=== PATIENT | male | born 1990 | race Caucasian/White ===

== ENCOUNTER 2021-08-02 17:00 | Emergency (ER) | payer OTHER ==
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
[2021-08-02 19:33] LABS: SARS-COV-2 RT PCR NEGATIVE (NEGATIVE)
--- NOTE | 2021-08-02 20:42 | ER ---
Nurse's Notes [facility] Name: Eliecer Conley Age: 30 yrs Sex: Male : 1990 Arrival Date: 08/02/2021 Time: 17:01 Bed External Waiting Private MD: Diagnosis: Viral infection, unspecified Presentation: 08/02 17:28 Chief complaint: Patient states: COVID exposure - headache, congestion, fatigue, body ld1 aches. Coronavirus screen: At this time, the client does not indicate any symptoms associated with coronavirus-19. Ebola Screen: No symptoms or risks identified at this time. Initial Sepsis Screen: Does the patient meet any 2 criteria? No. Patient's initial sepsis screen is negative. Does the patient have a suspected source of infection? No. Patient's initial sepsis screen is negative. Risk Assessment: Do you want to hurt yourself or someone else? Patient reports no desire to harm self or others. Onset of symptoms was August 02, 2021 at 17:30. 17:28 Method Of Arrival: Ambulatory ld1 17:28 Acuity: LINDA 3 ld1 Triage Assessment: 17:30 General: Appears in no apparent distress. comfortable, Behavior is calm, cooperative, ld1 appropriate for age. Pain: Denies pain. Neuro: Level of Consciousness is awake, alert, obeys commands, Oriented to person, place, time, situation. Respiratory: Airway is patent Respiratory effort is even, unlabored, Respiratory pattern is regular, symmetrical. Historical: - Allergies: 17:30 No Known Allergies; ld1 - Home Meds: 17:30 None [Active]; ld1 - PMHx: 17:30 None; ld1 - PSHx: 17:30 None; ld1 - Immunization history:: Adult Immunizations up to date, Client reports having NOT received the Covid vaccine. - Social history:: Smoking status: Patient denies any tobacco usage or history of. Patient/guardian denies using alcohol. Screenin:36 Abuse screen: Denies threats or abuse. Denies injuries from another. Nutritional ld1 screening: No deficits noted. Tuberculosis screening: No symptoms or risk factors identified. Fall Risk None identified. Assessment: 19:36 Reassessment: See triage assessment. ld1 Vital Signs: 17:28 BP 127 / 97; Pulse 93; Resp 18; Temp 98.5(O); Pulse Ox 100% on R/A; Weight 108.86 kg; ld1 Height 5 ft. 11 in. (180.34 cm); Pain 0/10; 17:28 Body Mass Index 33.47 (108.86 kg, 180.34 cm) ld1 ED Course: 17:01 Patient arrived in ED. ds1 17:30 Triage completed. ld1 17:30 Arm band placed on right wrist. ld1 19:35 Ron Velasquez NP is PHCP. pm1 19:35 Doron Barragan MD is Attending Physician. pm1 19:36 Patient has correct armband on for positive identification. Placed in gown. Bed in low ld1 position. Call light in reach. Side rails up X2. Door closed. 19:36 No provider procedures requiring assistance completed. Patient did not have IV access ld1 during this emergency room visit. Administered Medications: No medications were administered Outcome: 20:42 Discharge ordered by MD. pm1 21:05 Discharged to home ambulatory. ld1 21:05 Condition: stable 21:05 Discharge instructions given to patient, Instructed on discharge instructions, follow up and referral plans. Demonstrated understanding of instructions, follow-up care. 21:05 Patient left the ED. ld1 Signatures: Sammie Mancilla ds1 Ron Velasquez NP CULINARY SPECIALIST pm1 Chaya Martinez, ROBERT RN ld1
--- NOTE | 2021-08-02 20:42 | EDPHYS ---
Physician Documentation [facility] Name: Eliecer Conley Age: 30 yrs Sex: Male : 1990 Arrival Date: 08/02/2021 Time: 17:01 Bed External Waiting Private MD: ED Physician Doron Barragan HPI: 08/02 19:42 This 30 yrs old Male presents to ER via Ambulatory with complaints of Covid Symptoms. pm1 19:42 Onset: The symptoms/episode began/occurred today. Severity of symptoms: in the pm1 emergency department the symptoms are unchanged. Modifying factors: The symptoms are alleviated by nothing, the symptoms are aggravated by nothing. Associated signs and symptoms: Pertinent positives: earache, sore throat, headache, Pertinent negatives: chest pain, diarrhea, fever, vomiting, cough, sob. The patient has not recently seen a physician. Multiple co-workers with covid . Historical: - Allergies: 17:30 No Known Allergies; ld1 - Home Meds: 17:30 None [Active]; ld1 - PMHx: 17:30 None; ld1 - PSHx: 17:30 None; ld1 - Immunization history:: Adult Immunizations up to date, Client reports having NOT received the Covid vaccine. - Social history:: Smoking status: Patient denies any tobacco usage or history of. Patient/guardian denies using alcohol. ROS: 19:42 Constitutional: Negative for fever, chills, and weight loss. pm1 19:42 Neck: Negative for injury, pain, and swelling, Cardiovascular: Negative for chest pain, palpitations, and edema, Respiratory: Negative for shortness of breath, cough, wheezing, and pleuritic chest pain, Abdomen/GI: Negative for abdominal pain, nausea, vomiting, diarrhea, and constipation, Back: Negative for injury and pain, MS/Extremity: Negative for injury and deformity, Skin: Negative for injury, rash, and discoloration. 19:42 ENT: Positive for ear pain, sore throat. 19:42 Neuro: Positive for headache, Negative for numbness, weakness. 19:42 All other systems are negative. Exam: 19:42 Constitutional: This is a well developed, well nourished patient who is awake, alert, pm1 and in no acute distress. 19:42 Head/Face: Normocephalic, atraumatic. 19:42 Back: No spinal tenderness. No costovertebral tenderness. Full range of motion. Skin: Warm, dry with normal turgor. Normal color with no rashes, no lesions, and no evidence of cellulitis. MS/ Extremity: Pulses equal, no cyanosis. Neurovascular intact. Full, normal range of motion. 19:42 ENT: External ear(s): are unremarkable, Ear canal(s): are normal, TM's: no acute changes, Mouth: no acute changes, Lips: normal, moist, Oral mucosa: normal, pink and intact, moist, Posterior pharynx: Tonsils: bilaterally enlarged, with erythema, peritonsillar mass, is not appreciated. 19:42 Cardiovascular: Exam negative for acute changes, Rate: normal, Rhythm: regular, Pulses: no pulse deficits are appreciated. 19:42 Respiratory: Exam negative for acute changes, respiratory distress, shortness of breath, Breath sounds: are clear throughout. 19:42 Neuro: Exam negative for acute changes, Orientation: is normal, Mentation: is normal, Motor: is normal, moves all fours, Gait: is steady, at a normal pace, without difficulty. Vital Signs: 17:28 BP 127 / 97; Pulse 93; Resp 18; Temp 98.5(O); Pulse Ox 100% on R/A; Weight 108.86 kg; ld1 Height 5 ft. 11 in. (180.34 cm); Pain 0/10; 17:28 Body Mass Index 33.47 (108.86 kg, 180.34 cm) ld1 MDM: 19:40 Data reviewed: vital signs. Data interpreted: Pulse oximetry: on room air is 100 %. pm1 Interpretation: normal. 19:42 Patient medically screened. pm1 20:41 Counseling: I had a detailed discussion with the patient and/or guardian regarding: the pm1 historical points, exam findings, and any diagnostic results supporting the discharge/admit diagnosis, lab results, the need for outpatient follow up, to return to the emergency department if symptoms worsen or persist or if there are any questions or concerns that arise at home. 08/02 17:32 Order name: COVID-19/FLU A+B (Document "Date of Onset" if Symptomatic); Complete Time: ld1 19:35 08/02 19:40 Order name: Strep pm1 08/02 19:41 Order name: Group A Streptococcus Rapid Sc; Complete Time: 20:41 EDMS 08/02 20:04 Order name: Throat Culture EDMS Administered Medications: No medications were administered Disposition: 08/03 02:01 Co-signature as Attending Physician, Doron Barragan MD. [email or web address] Disposition Summary: 08/02/21 20:42 Discharge Ordered Location: Home pm1 Problem: new pm1 Symptoms: have improved pm1 Condition: Stable pm1 Diagnosis - Viral infection, unspecified pm1 Followup: pm1 - With: Emergency Department - When: As needed - Reason: Worsening of condition Followup: pm1 - With: Private Physician - When: 2 - 3 days - Reason: Recheck today's complaints, Continuance of care, Re-evaluation by your physician Discharge Instructions: - Discharge Summary Sheet pm1 - Viral Illness, Adult pm1 Forms: - Medication Reconciliation Form pm1 - Thank You Letter pm1 - Antibiotic Education pm1 - Prescription Opioid Use pm1 Prescriptions: - Guaifenesin AC 10-100 mg/5 mL Oral Liquid - take 10 milliliters by ORAL route every 4 hours As needed; 240 milliliter; pm1 Refills: 0, Product Selection Permitted Signatures: Dispatcher [employer] EDMS Doron Barragan MD MD pkl Ron Velasquez, [employer] pm1 Chaya Martinez, RN RN ld1
[2021-08-02 21:10] VITALS: BP 127/97; TEMP 98.5; O2SAT 100
== END 2021-08-02 21:05 | disposition home or self-care (01) ==
LOC: ER 17:00
DX: B34.9 Viral infection, unspecified (principal); Z20.822 Contact with and (suspected) exposure to COVID-19
CPT/HCPCS: 87070; 87081; 0240U; 99281